=== PATIENT | male | born 1965 | race Caucasian/White ===

== ENCOUNTER 2025-07-16 07:32 | Outpatient (CLI) | payer OTHER | END 2025-07-16 07:33 | disposition home or self-care (01) | LOC: SCSMRI 07:32 | PROVIDERS: ATTEND Orthopaedic Surgery Sports Medicine | DX: M25.561 Pain in right knee (principal); M25.511 Pain in right shoulder; S46.911A Strain of unspecified muscle, fascia and tendon at shoulder and upper arm level, right arm, initial encounter; M19.011 Primary osteoarthritis, right shoulder; R93.7 Abnormal findings on diagnostic imaging of other parts of musculoskeletal system ==